=== PATIENT | male | born 1950 | race Caucasian/White ===

== ENCOUNTER 2018-04-09 19:49 | Emergency (ER) | payer MEDICARE, BC ==
[~2018-04-09] VITALS: Ht 175.3 cm; Wt 88.6 kg
[~2018-04-09 19:49] MED LIST: CIPRO 500MG TA500 MG PO; DULCOLAX STOOL100 MG PO; NORCO 325 MG-51 TAB PO; TYLENOL 500MG500 MG PO
[2018-04-09 19:51] VITALS: BP 139/83; TEMP 99.5
[2018-04-09 21:07] VITALS: PULSE 80
== END 2018-04-09 21:09 | disposition home or self-care (01) ==
LOC: COL.ER 19:49
DX: N99.89 Other postprocedural complications and disorders of genitourinary system (principal); R33.9 Retention of urine, unspecified; Z90.79 Acquired absence of other genital organ(s)